=== PATIENT | female | born 1960 | race Two or more races ===

== ENCOUNTER 2017-01-31 16:21 | Emergency (ER) | payer MEDICAID ==
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
[2017-01-31] MEDS ORDERED: ASPIRIN 81 MG CHEWABLE TAB PO ONE (16:49)
--- NOTE | 2017-01-31 16:58 | CPEKG ---
Heart Rate: 119 RR Interval: 504 P-R Interval: 160 QRSD Interval: 76 QT Interval: 332 QTC Interval: 468 P [place]: 66 QRS [place]: 27 T Wave [place]: 11 EKG Severity - BORDERLINE ECG - EKG Impression: SINUS TACHYCARDIA EKG Impression: PROBABLE LEFT ATRIAL ABNORMALITY EKG Impression: MINIMAL ST DEPRESSION, ANTEROLATERAL LEADS Electronically Signed By: Tamra Ching 31-Jan-2017 17:04:49
[2017-01-31 17:08] LABS: % IMMATURE GRANULYOCYTES 0.3 % (0.0-1.1); ABSOLUTE IMMATURE GRANULOCYTES 0.03 10^3/uL (0.00-0.10); ADD DIFF? NO; ADD MORPH? NO; ADD SCAN? NO; ATYPICAL LYMPHOCYTE FLAG 0 (0-99); FRAGMENT RBC FLAG 0 (0-99); HEMATOCRIT 42.2 % (38.0-47.0); HEMOGLOBIN 14.4 g/dL (12.6-16.3); LEFT SHIFT FLG 0 (0-99); LIPEMIA HEMOLYSIS FLAG 90 (0-99); MEAN CELL HEMOGLOBIN 31.4 pg (27.9-34.1); MEAN CELL HEMOGLOBIN CONCENTR. 34.1 g/dL (32.4-36.7); MEAN CELL VOLUME 91.9 fL (81.5-99.8); PLATELET CLUMPS FLAG 0 (0-99); PLATELET COUNT 246 10^3/uL (150-400); RED BLOOD CELL COUNT 4.59 10^6/uL (4.18-5.33); RED CELL DISTRIBUTION WIDTH 12.6 % (11.5-15.2)
[2017-01-31 17:26] LABS: ANION GAP 15 mEq/L (8-16); CALCIUM 10.3 mg/dL (8.5-10.4); CARBON DIOXIDE 21 mEq/l (22-31); CHLORIDE 103 mEq/L (97-110); CREATININE 0.6 mg/dL (0.6-1.0); GLOMERULAR FILTRATION RATE > 60; GLUCOSE 115 mg/dL (70-100); POTASSIUM 3.8 mEq/L (3.5-5.2); SODIUM 139 mEq/L (134-144)
[2017-01-31 17:31] LABS: TROPONIN I < 0.012 ng/mL (0.000-0.034)
[2017-01-31 19:11] LABS: GLUCOSE, SYNOVIAL FLUID 90 mg/dL (55-113)
[2017-01-31] MEDS ORDERED: fentaNYL 100 MCG/2 ML INJ IVP ONE (19:28)
[2017-01-31 19:29] LABS: WBC, SYNOVIAL FLUID 35784 /mm3 (0-150)
[2017-01-31] MEDS ORDERED: INDOMETHACIN 25 MG CAP PO ONE (20:01)
[2017-01-31 20:36] LABS: APTT 22.9 SEC (23.0-38.0)
[2017-01-31 20:43] LABS: INR 1.03 (0.83-1.16); PROTIME(PATIENT) 13.2 SEC (12.0-15.0)
[2017-01-31] MEDS ORDERED: HYDROCODONE/APAP 5/325 TAB PO ONE (21:15)
[2017-01-31] MEDS ORDERED: HYDROCOD/APAP 5/325 PREPACK#6 BTL TAKEHOME ONE (21:42)
[2017-01-31 22:19] VITALS: BP 122/81; PULSE 96; RESP 20; TEMP 98.6; O2SAT 95
== END 2017-01-31 21:50 | disposition home or self-care (01) ==
LOC: CED 16:21
PROC: 0S9D3ZZ Drainage of Left Knee Joint, Percutaneous Approach (ICD-10-PCS; principal; 2017-01-31)
DX: M10.9 Gout, unspecified (principal); Z87.891 Personal history of nicotine dependence
CPT/HCPCS: 71020-PO; 73562-PO; 80048-PO; 82247-PO; 83605-PO; 84443-PO; 84484-PO; 85025-PO; 85378-PO; 85610-PO; 85730-PO; 96374; J3010